=== PATIENT | female | born 1970 | race Caucasian/White ===

== ENCOUNTER 2019-12-05 15:17 | Emergency (ER) | payer OTHER, SELFPAY ==
[2019-12-05 15:38] VITALS: BP 108/65; PULSE 77; RESP 18; TEMP 36.9; O2SAT 98
--- NOTE | 2019-12-05 16:17 | ED.GENADULT ---
HPI - General Adult General Chief complaint: Upper Respiratory Infection Stated complaint: headache/Bodychills History of Present Illness HPI narrative: 49-year-old female that comes in complaining of a headache states that she became diaphoretic and flushed and dizzy. The symptoms have since subsided she has pressure in the back of her head from the headache but it is minimal at this time patient denies any numbness tingling or any weakness Related Data Allergies Allergy/AdvReac Type Severity Reaction Status Date / Time No Known Allergies Allergy Verified 12/05/19 16:00 Review of Systems Review of Systems: Narrative: CONSTITUTIONAL: Denies fever, chills, or sweats. EYES: Denies visual changes, redness, or discharge. ENT: Denies rhinorrhea, congestion, sore throat, or otalgia. CARDIOVASCULAR:Denies chest pain, palpitations, or edema. RESPIRATORY: Denies cough or dyspnea. GASTROINTESTINAL: Denies abdominal pain, nausea, vomiting, or diarrhea. GENITOURINARY: Denies dysuria or hematuria. SKIN:[Denies rash or itching. MUSCULOSKELETAL:Denies back pain, joint pain, or myalgia. NEUROLOGIC: positive headache, numbness, or weakness. PSYCHIATRIC:Denies anxiety or depression PMFSH Comments At time as signature, I have reviewed and agree with nursing past medical, social, surgical and family history. Please see nursing chart for further information. There is no relevant family history pertinent to the presenting complaint. Exam Narrative: Exam Narrative: GENERAL:Well-appearing, well-nourished, and in no acute distress. Headache has since lessened and she is feeling better now per patient she used to get migraines all the time approximately 30 years ago HEAD:Normocephalic, atraumatic. EYES: PERRLA and EOMI. ENT: Nares clear, no rhinorrhea or epistaxis. Mucous membranes moist. NECK: Supple. CHEST: Clear to auscultation. No respiratory distress. HEART: Regular rate and rhythm. No murmur heard. Normal peripheral pulses. ABDOMEN: Soft, nontender, nondistended, normal active bowel sounds. EXTREMITIES: Normal range of motion. No edema. SKIN: Warm, dry, no rash. NEURO: No focal deficits. Alert and oriented x3. Course Vital Signs Vital signs: Vital Signs Temperature 98.4 F 12/05/19 15:38 Pulse Rate 77 12/05/19 15:38 Respiratory Rate 18 12/05/19 15:38 Blood Pressure 108/65 12/05/19 15:38 Pulse Oximetry 98 12/05/19 15:38 Temperature 98.4 F 12/05/19 15:38 Pulse Rate 77 12/05/19 15:38 Respiratory Rate 18 12/05/19 15:38 Blood Pressure 108/65 12/05/19 15:38 Pulse Oximetry 98 12/05/19 15:38 Medical Decision Making Vital Signs Vital Signs: Vital Signs Temperature 98.4 F 12/05/19 15:38 Pulse Rate 77 12/05/19 15:38 Respiratory Rate 18 12/05/19 15:38 Blood Pressure 108/65 12/05/19 15:38 Pulse Oximetry 98 12/05/19 15:38 Temperature 98.4 F 12/05/19 15:38 Pulse Rate 77 12/05/19 15:38 Respiratory Rate 18 12/05/19 15:38 Blood Pressure 108/65 12/05/19 15:38 Pulse Oximetry 98 12/05/19 15:38 Lab Data Labs: Strep Screen Presumptive Negative *(Reference Range: Negative)* Discharge Plan Discharge Clinical Impression: Headache Qualifiers: Headache type: unspecified Headache chronicity pattern: acute headache Intractability: not intractable Qualified Code(s): R51 - Headache Patient Disposition: Home, Self-Care Condition: Stable Instructions: Antibiotic Form, Acute Headache (ED) Prescriptions: New ibuprofen 600 mg tablet 600 mg PO TID PRN (Reason: pain) Qty: 20 RF: 0 ondansetron HCl [Zofran] 4 mg tablet 4 mg PO Q8H PRN (Reason: nausea and vomiting) Qty: 10 RF: 0 cetirizine [Zyrtec] 10 mg tablet 10 mg PO DAILY PRN (Reason: allergy symptoms) Qty: 30 RF: 0 Follow-up/Referrals: UNKNOWN,DOCTOR [Primary Care Provider] - Stand Alone Forms: Work/School Release IP Time of Disposition: 16:25
== END 2019-12-05 16:30 | disposition home or self-care (01) ==
PROVIDERS: Emergency Provider Nurse Practitioner Family
DX: R51 Headache (principal)
CPT/HCPCS: 87081; 87880; 99213; G0463

== ENCOUNTER 2020-04-29 13:27 | Emergency (ER) | payer OTHER, SELFPAY ==
--- NOTE | ~2020-04-29 | XR_ITS ---
EXAMINATION: XR chest 2V EXAM DATE: 04/29/2020 14:04 INDICATION: Tachycardia, right-sided jaw pain. TECHNIQUE: Frontal and lateral projections of the chest obtained and reviewed. Comparison is made to prior examination from 12/26/2006. FINDINGS: Mild to moderate chronic appearing hyperinflation. The lungs are clear. There are no pleu ral effusions. The cardiomediastinal silhouette is within normal limits. There is no pneumothorax s uspected. The bones and soft tissues are unremarkable. IMPRESSION: No acute cardiopulmonary findings. Reviewed, dictated and finalized at location A.
--- NOTE | 2020-04-29 13:39 | ECG_ITS ---
Measurements Intervals [place] Rate: 80 P: 75 WA: 138 QRS: 32 QRSD: 114 T: 54 QT: 368 QTc: 426 Interpretive Statements SINUS RHYTHM POSSIBLE LEFT ATRIAL ENLARGEMENT INCOMPLETE RIGHT BUNDLE BRANCH BLOCK BASELINE ARTIFACT- I, III, AVL BORDERLINE ECG Electronically Signed On 04-29-2020 13:47:24 CDT by Jose Cano D.O.
[2020-04-29 13:40] VITALS: BP 109/68; PULSE 73; RESP 13; TEMP 36.7; O2SAT 100
[2020-04-29 13:51] LABS: Basophils Absolute Auto 0.1 K/mm3 (0.0-0.1); Basophils Percent Auto 0.7 % (0.2-1.2); Eosinophils Absolute Auto 0.5 K/mm3 (0-0.3); Hematocrit 42.1 % (37.0-47.0); Hemoglobin 14.3 g/dL (12.0-15.0); Immature Granulocyte Absolute 0.01 K/mm3 (0.00-0.031); Immature Granulocyte Percent A 0.1 % (0-0.5); Lymphocytes Absolute Auto 2.01 K/mm3 (0.9-3.2); Lymphocytes Percent Auto 30.1 % (18.3-44.2); Mean Corpuscular Hemoglobin 31.2 pg (26-34); Mean Corpuscular Volume 91.7 fl (80-100); Mean Platelet Volume 9.8 fl (7.4-10.4); Monocytes Absolute Auto 0.6 K/mm3 (0.1-0.6); Monocytes Percent Auto 9.4 % (2.6-8.5); Neutrophils Absolute Auto 3.5 K/mm3 (1.3-6.7); Neutrophils Percent Auto 52.7 % (45.5-73.1); Platelet Count Result 227 k/mm3 (150-375); Red Blood Count 4.59 M/mm3 (4.2-5.4); Red Cell Distribution Width 13.2 % (11.5-14.5); White Blood Count 6.7 K/mm3 (4.5-10.0)
[2020-04-29 13:55] VITALS: O2SAT 99
[2020-04-29 14:02] LABS: INR 1.1; Prothrombin Time 13.5 Seconds (11.1-14.7)
[2020-04-29 14:03] LABS: Partial Thromboplastin Time 31.9 SECONDS (22.3-36.8)
[2020-04-29 14:04] LABS: Anion Gap 11.1 mmol/L (7-16); Blood Urea Nitrogen 12 mg/dL (7-17); Calcium 9.8 mg/dL (8.4-10.2); Carbon Dioxide 27 mmol/L (22-30); Chloride 102 mmol/L (98-107); Estimated CRCL calculation 73 ml/min; Estimated Glomerular Filt Rate > 60; Glucose 96 mg/dL (65-105); Potassium 4.1 mmol/L (3.4-5.0); Sodium 136 mmol/L (137-145)
[2020-04-29 14:16] LABS: Troponin I < 0.012 ng/mL (0.000-0.034)
--- NOTE | 2020-04-29 14:46 | ED.CHESTPAIN ---
HPI - Chest Pain General Chief Complaint: Chest Pain Stated Complaint: palpitations/right jaw pain Time Seen by Provider: 04/29/20 14:20 History of Present Illness HPI narrative: Today while working outside she had a period of rapid heart rate up to 144 on her watch. This was associated with pain in the neck and jaw. No SOB. She has had a similar episode in the past and had 24 hour monitoring. It sounds like they found sinus tachycardia. No chest pain, SOB. She did have mild nausea. Related Data Home Medications Medication Instructions Recorded Confirmed esomeprazole magnesium [Nexium] 20 mg PO DAILY 04/29/20 Allergies Allergy/AdvReac Type Severity Reaction Status Date / Time cephalexin Allergy Anaphylaxis Verified 04/29/20 13:53 Review of Systems Review of Systems: All systems reviewed & are unremarkable except as noted in HPI and below Constitutional: Constitutional: Denies chills and Denies fever(s) Cardiovascular: Cardiovascular: Denies chest pain, Reports rapid heart rate and Reports radiating jaw, neck or arm pain Respiratory: Respiratory: Denies dyspnea Gastrointestinal: Gastrointestinal: Denies abdominal pain, Denies diarrhea, Reports nausea and Denies vomiting Musculoskeletal: Musculoskeletal: Denies back pain Neurologic: Denies numbness and Denies weakness Exam Const: General: healthy appearing, no acute distress and alert Orientation/consciousness: patient oriented x3 HENMT: Head: normal to inspection Neck: Neck: normal visual inspection and no lymphadenopathy Chest: Chest palpation & inspection: no tenderness Resp: Effort & Inspection: normal respiratory effort Auscultation: clear to auscultation bilaterally, no rales, no rhonchi and no wheezes Cardio: Jugular venous distension: no JVD Rate: regular rate Rhythm: regular rhythm Heart sounds: no murmurs GI: Inspection: non-distended GI Palp: Yes Soft to palpation and No Tenderness to palpation present (GI) Skin: General skin exam: normal color Neuro: General: patient oriented x3 and moves all extremities Speech: normal speech Extrem: General: no edema Psych: Appearance: well kempt Affect: normal affect Course Vital Signs Vital signs: Vital Signs Temperature 36.7 C 04/29/20 13:40 Pulse Rate 73 04/29/20 13:40 Respiratory Rate 13 04/29/20 13:40 Blood Pressure 109/68 04/29/20 13:40 Pulse Oximetry 100 04/29/20 13:40 Temperature 36.7 C 04/29/20 13:40 Pulse Rate 80 04/29/20 16:26 Respiratory Rate 18 04/29/20 16:23 Blood Pressure 104/84 04/29/20 16:23 Pulse Oximetry 100 04/29/20 16:23 MDM - Chest Pain Medical Records Data Attestation: I reviewed the patient's medical records. Lab Data Attestation: I reviewed the patient's lab results. Result diagrams: 04/29/20 13:44 04/29/20 13:44 Labs: Lab Results 04/29/20 04/29/20 04/29/20 Range/Units 13:44 13:44 13:44 WBC 6.7 (4.5-10.0) K/mm3 RBC 4.59 (4.2-5.4) M/mm3 Hgb 14.3 (12.0-15.0) g/dL Hct 42.1 (37.0-47.0) % MCV 91.7 (80-100) fl MCH 31.2 (26-34) pg MCHC 34.0 (32-36) g/dl RDW 13.2 (11.5-14.5) % Plt Count 227 (150-375) k/mm3 MPV 9.8 (7.4-10.4) fl Immature Gran % (Auto) 0.1 (0-0.5) % Neut % (Auto) 52.7 (45.5-73.1) % Lymph % (Auto) 30.1 (18.3-44.2) % [place] % (Auto) 9.4 H (2.6-8.5) % Eos % (Auto) 7.0 H (0-4.4) % Baso % (Auto) 0.7 (0.2-1.2) % Lymph # (Auto) 2.01 (0.9-3.2) K/mm3 [place] # (Auto) 0.6 (0.1-0.6) K/mm3 Eos # (Auto) 0.5 H (0-0.3) K/mm3 Baso # (Auto) 0.1 (0.0-0.1) K/mm3 Abs Immat Gran (auto) 0.01 (0.00-0.031) K/mm3 Absolute Neuts (auto) 3.5 (1.3-6.7) K/mm3 Absolute Nucleated RBC 0.0 (0.0-0.012) K/mm3 Nucleated RBC % 0.0 (0.0-0.2) % PT 13.5 (11.1-14.7) Seconds INR 1.1 APTT 31.9 (22.3-36.8) SECONDS Sodium 136 L (137-145) mmol/L Potassium 4.1 (3.4-5.0) mmol/L
[2020-04-29 16:23] VITALS: BP 104/84; PULSE 78; RESP 18; O2SAT 100
[2020-04-29] MEDS: ASPIRIN 81 MG CHEWABLE TABLET 324 MG PO (16:25)
[2020-04-29 16:26] VITALS: PULSE 80
[2020-04-29 16:57] LABS: Troponin I < 0.012 ng/mL (0.000-0.034)
[2020-04-29 17:16] VITALS: BP 106/61; PULSE 68; RESP 18; TEMP 36.7; O2SAT 98
== END 2020-04-29 17:31 | disposition home or self-care (01) ==
PROVIDERS: Emergency Provider Emergency Medicine
DX: R00.2 Palpitations (principal); I45.10 Unspecified right bundle-branch block; R94.31 Abnormal electrocardiogram [ECG] [EKG]
CPT/HCPCS: 36415; 71046; 80048; 84484; 85025; 85610; 85730; 93005; 99284; A9270

== ENCOUNTER 2020-12-11 13:35 | Emergency (ER) | payer OTHER, SELFPAY ==
[2020-12-11 13:52] VITALS: BP 117/63; PULSE 95; RESP 18; TEMP 36.4; O2SAT 96
--- NOTE | 2020-12-11 14:12 | ED.SKABFB ---
HPI - Skin/Abscess/Foreign Bdy General Chief complaint: Skin/Abscess/Foreign Body Stated complaint: rash Time Seen by Provider: 12/11/20 14:02 Source: patient and RN notes reviewed Mode of arrival: ambulatory Limitations: no limitations History of Present Illness HPI narrative: Patient presents today complaining of a rash to her left posterior shoulder and right neck. States it started out as a small area to her left shoulder x1 week and has progressively spread. States it started after she received acupuncture and applied some Neosporin to that area. She also then applied some Neosporin to the right neck area. She is unsure if there is a correlation. Patient also states she has some bumps and swelling to her tongue that started today, but possibly yesterday, she is unsure. Currently denies any shortness of breath or difficulty swallowing. She has been taking Zyrtec. MD complaint: rash Related Data Home Medications Medication Instructions Recorded Confirmed cholecalciferol (vitamin D3) 10 mcg PO DAILY 12/11/20 12/11/20 [Vitamin D3] lactobacillus combination no.4 3,000 mmu cells PO DAILY 12/11/20 12/11/20 [Probiotic] Allergies Allergy/AdvReac Type Severity Reaction Status Date / Time cephalexin Allergy Anaphylaxis Verified 12/11/20 14:00 Review of Systems Review of Systems: Narrative: CONSTITUTIONAL: Denies body aches, fever, chills, or sweats. EYES: Denies visual changes, redness, or discharge. ENT: Denies rhinorrhea, congestion, sore throat, or otalgia. Tongue swelling and sores CARDIOVASCULAR: Denies chest pain, palpitations, or edema. RESPIRATORY: Denies cough or dyspnea. GASTROINTESTINAL: Denies abdominal pain, nausea, vomiting, or diarrhea. GENITOURINARY: Denies dysuria or hematuria. SKIN: Denies itching, or wounds. + Rash MUSCULOSKELETAL: Denies back pain, joint pain, or myalgia. NEUROLOGIC: Denies headache, numbness, tingling, or weakness. PSYCH: Denies depression or anxiety. [facility] Past Medical History Medical History (Updated 12/11/20 @ 14:18 by Paulina Walters, [facility], ) GERD (gastroesophageal reflux disease) History of migraine History of ovarian cyst Spondylosis Surgical History Surgical History (Updated 12/11/20 @ 14:16 by Paulina Walters, [employer], ) H/O: hysterectomy Comments At time of signature, I have reviewed and agree with nursing past medical, surgical, social and family history unless otherwise noted. Please see nursing chart for further information. There is no relevant family history pertinent to the presenting complaint Exam Narrative: Exam Narrative: GENERAL: Well-appearing, well-nourished, and in no acute distress. HEAD: Normocephalic, atraumatic. EYES: EOMI. No redness or drainage. Conjunctivae normal. ENT: Mucous membranes pink and moist. Nares clear. No rhinorrhea. TMs normal bilaterally. Throat normal. Tongue normal. Uvula midline. NECK: Normal AROM. Supple. No lymphadenopathy. CHEST: No respiratory distress. Clear to auscultation. HEART: Regular rate and rhythm. No murmur appreciated. Normal peripheral pulses. EXTREMITIES: Normal range of motion. No edema. SKIN: Warm, dry. Capillary refill normal. Normal skin turgor. Mildly erythematous maculopapular rash in a large patch to the left scapula some scabbed over. No vesicles, induration, drainage, or signs of bacterial infection. Similar rash to right neck and postauricular area. NEURO: No focal deficits. Alert and oriented x3. Gait steady. PSYCH: Normal affect. No signs of depression or anxiety. Course Vital Signs Vital signs: Vital Signs Temperature 97.5 F L 12/11/20 13:52 Pulse Rate 95 12/11/20 13:52 Respiratory Rate 18 12/11/20 13:52 Blood Pressure 117/63 12/11/20 13:52 Pulse Oximetry 96 12/11/20 13:52 Temperature 97.5 F L 12/11/20 13:52 Pulse Rate 95 12/11/20 13:52 Respiratory Rate 18 12/11/20 13:52 Blood Pressure 117/63 12/11/20 13:52 Pulse Oximetry 96
== END 2020-12-11 14:22 | disposition home or self-care (01) ==
PROVIDERS: Emergency Provider Nurse Practitioner; PCP Family Medicine
DX: L25.9 Unspecified contact dermatitis, unspecified cause (principal); K21.9 Gastro-esophageal reflux disease without esophagitis; M47.9 Spondylosis, unspecified
CPT/HCPCS: 99213; G0463

== ENCOUNTER → 2021-03-11 18:28 | Outpatient (CLI) | payer OTHER, SELFPAY ==
--- NOTE | ~2021-03-11 | XR_ITS ---
XR cervical spine 4-5V DATE: 03/11/2021 19:08 INDICATION: Chronic neck pain TECHNIQUE: AP, lateral, swimmer's, open-mouth and bilateral oblique views COMPARISON: None FINDINGS: C1 and C2 are normally aligned and the odontoid process is intact. No fracture or dislocati on or locked facet or prevertebral soft tissue swelling. Cervical interspaces are preserved. There is no significant bony encroachment upon the neural foramina. IMPRESSION: No significant abnormality Reviewed, dictated and finalized at location A. IMPRESSION: No significant abnormality
== END ==
DX: M54.2 Cervicalgia (principal)
CPT/HCPCS: 72050

== ENCOUNTER → 2021-05-24 14:03 | Outpatient (CLI) | payer OTHER, SELFPAY ==
--- NOTE | ~2021-05-24 | XR_ITS ---
XR scoliosis survey DATE: 05/24/2021 14:53 INDICATION: Spondylolisthesis at L5-S1 TECHNIQUE: Standing AP and lateral views of the spine COMPARISON: 05/24/2021 CT lumbar spine FINDINGS: 11 degrees dextroscoliosis from T1 to T6. 11 degrees levoscoliosis from T6 toT12. 10 degrees dextroscoliosis from T12 to L3. The right femoral head is 6.5 mm higher than the left femoral head. There is grade 2 anterolisthesis at L5-S1 due to bilateral pars interarticularis defects at L5. Otherwise no fracture or bone destruction of the cervical, thoracic or lumbar spine. Sacroiliac join ts are intact. IMPRESSION: 11 degrees dextroscoliosis from T1 to T6. 11 degrees levoscoliosis from T6 toT12. 10 degrees dextroscoliosis from T12 to L3. Reviewed, dictated and finalized at [facility]. Reviewed, dictated and finalized at location A.
--- NOTE | ~2021-05-24 | XR_ITS ---
XR lumbar spine bending only DATE: 05/24/2021 14:53 INDICATION: L5-S1 spondylolisthesis TECHNIQUE: Standing flexion and extension lateral views COMPARISON: 05/24/2021 CT lumbar spine FINDINGS: There is approximately 12 mm grade 2 anterolisthesis at L5-S1 in flexion and extension due to bilateral L5 pars inter-articularis defects documented on 05/24/2021 CT lumbar spine examination. The lumbar vertebrae are otherwise normally aligned. There is abdominal aortic calcification without aneurysm. IMPRESSION: Bilateral L5 pars interarticularis defects with grade 2 anterolisthesis at L5-S1 Reviewed, dictated and finalized at location A. IMPRESSION: Bilateral L5 pars interarticularis defects with grade 2 anterolisth esis at L5-S1
--- NOTE | ~2021-05-24 | CT_ITS ---
EXAMINATION: CT lumbar spine wo con DATE: 05/24/2021 14:33 INDICATION: Lumbosacral spondylolisthesis. Low back pain. TECHNIQUE: Computed tomography (CT) of the lumbar spine was performed without intravenous contrast. A utomated exposure control and iterative reconstruction technique were employed. The dose-length produ ct was 859.77 mGy-cm. COMPARISON: Lumbar spine radiographs 05/24/2021 FINDINGS: There is 7 degrees dextrocurvature of thoracolumbar spine. There are chronic bilateral L5 p ars defects. There is 9 mm anterolisthesis of L5 on S1. There is mild chronic wedging of T12 vertebra l body. There is chronic mild height loss of L5 vertebral body posteriorly. There is moderately decre ased disc height at L5-S1 with endplate remodeling. The following disc levels are specifically discus sed: L1-L2: The disc does not extend beyond the endplate margins. There is moderate right and mild left fa cet joint osteoarthritis. There is no neural foraminal stenosis. There is no central canal stenosis. L2-L3: The disc does not extend beyond the endplate margin. There is mild bilateral facet joint osteo arthritis. There is no neural foraminal stenosis. There is no central canal stenosis. L3-L4: The disc is bulging. There is severe bilateral facet joint osteoarthritis. There is mild left neural foraminal stenosis. There is mild central canal stenosis. L4-L5: The disc is bulging. There is severe bilateral facet joint osteoarthritis. There is mild bilat eral neural foraminal stenosis. There is mild central canal stenosis. L5-S1: The disc is bulging. There is moderate bilateral facet joint osteoarthritis. There is moderate bilateral neural foraminal stenosis. There is no central canal stenosis. IMPRESSION: 1. Moderate lower lumbar spondylosis. 2. Chronic bilateral L5 pars defects with grade 1 anterolisthesis of L5 on S1. Reviewed, dictated and finalized at location A.
== END ==
PROVIDERS: Visit Provider Neurological Surgery
DX: M43.17 Spondylolisthesis, lumbosacral region (principal); M47.896 Other spondylosis, lumbar region
CPT/HCPCS: 72082; 72120; 72131

== ENCOUNTER 2021-06-26 16:29 | Outpatient (CLI) | payer OTHER, SELFPAY ==
--- NOTE | ~2021-06-26 | MM_ITS ---
EXAMINATION: MM screening jasmin BI w shoaib HISTORY: Screening TECHNIQUE: Craniocaudal and mediolateral oblique 3-D tomosynthesis images were obtained and synthetic 2-D images were generated. CAD analysis was submitted and interpreted. COMPARISON: No prior mammogram is available for comparison at this institution. BREAST PARENCHYMAL COMPOSITION: There are scattered areas of fibroglandular density. FINDINGS: There is no evidence of suspicious mass, calcification, or architectural distortion to sugg est malignancy in either breast. There has been no suspicious interval change. IMPRESSION: 1. No mammographic evidence of malignancy. 2. Recommend routine screening mammography in one year. BI-RADS Category 1: Negative Reviewed, dictated and finalized at location A.
== END 2021-06-26 16:30 | disposition home or self-care (01) ==
PROVIDERS: PCP Family Medicine
DX: Z12.31 Encounter for screening mammogram for malignant neoplasm of breast (principal)
CPT/HCPCS: 77063; 77067